=== PATIENT | female | born 1940 | race Caucasian/White ===

== ENCOUNTER 2017-06-27 08:30 | Inpatient (IN) | payer OTHER ==
[~2017-06-27] VITALS: Ht 157.5 cm; Wt 88.5 kg
[~2017-06-27 08:30] MED LIST: DURICEF 500 MG CAPSULE PO; OXYC1TAB9 PO; XARELTO 10MG PO
[2017-07-06] MEDS ORDERED: HYDROXYZINE PA100 MG PO (09:14)
[2017-07-06] MEDS ORDERED: JANUMET XR 50-1 EAC1 PO (09:14)
[2017-07-06] MEDS ORDERED: TOPROL XL100 MG PO (09:15)
[2017-07-06] MEDS ORDERED: CHLORTHALIDONE PO (09:15)
[2017-07-06] MEDS ORDERED: COZAAR100 MG PO (09:16)
[2017-07-06] MEDS ORDERED: [UNRECOGNIZED DRUG - OTHER] PO (09:16)
[2017-07-06] MEDS ORDERED: CLONAZEPAM0.5 MG PO (09:17)
[2017-07-06] MEDS ORDERED: ASA81 MG PO (09:17)
[2017-07-06] MEDS ORDERED: ZOLOFT100 MG PO (09:17)
[2017-07-13] MEDS ORDERED: CARDURA XL8 MG PO (12:52)
[2017-07-14] MEDS ORDERED: XARELTO10 MG PO (08:55)
[2017-07-14] MEDS ORDERED: OXYC1TAB9 PO (08:55)
[2017-07-14] MEDS ORDERED: INTEGRA PLUS C1 EACH PO (08:55)
== END 2017-07-14 17:27 | DRG 467 ==
LOC: ADM 08:30 → O/R 07-11 06:40 → SURG 07-11 06:40 → EDSTATUS 07-11 08:15 → SURH 07-11 08:15 → CIR.AMB 07-11 08:15 → SURH 07-11 09:00 → SURG 07-11 17:13
PROVIDERS: Orthopaedic Surgery Sports Medicine
PROC: 0SRC0J9 Replacement of Right Knee Joint with Synthetic Substitute, Cemented, Open Approach (ICD-10-PCS; 2017-07-11)
PROC: 0SPC0JZ Removal of Synthetic Substitute from Right Knee Joint, Open Approach (ICD-10-PCS; principal; 2017-07-11 09:00)
PROC: 30233N1 Transfusion of Nonautologous Red Blood Cells into Peripheral Vein, Percutaneous Approach (ICD-10-PCS; 2017-07-13)
DX: M17.11 Unilateral primary osteoarthritis, right knee (principal); T84.032A Mechanical loosening of internal right knee prosthetic joint, initial encounter; Y83.8 Other surgical procedures as the cause of abnormal reaction of the patient, or of later complication, without mention of misadventure at the time of the procedure; Y92.098 Other place in other non-institutional residence as the place of occurrence of the external cause; D64.89 Other specified anemias